=== PATIENT | female | born 1970 | race Caucasian/White ===

== ENCOUNTER 2019-05-08 12:03 | Emergency (ER) | payer BC ==
[2019-05-08 12:24] VITALS: BP 161/98
--- NOTE | 2019-05-08 12:41 | ED ---
Influenza-Like Illness - HPI Summary HPI Summary: Pt is 48yo otherwise healthy female presenting to the ED with concern over a fever of 100.4 yesterday. She denies any cough or congestion. She denies any rhinorrhea. She does endorse a slight sore throat, she rates this a 1/10. Denies any odynophagia or dysphagia. No ear pain, eye pain, neck pain. She does endorse some pain to her bilateral shoulders, again rating this a 1/10. Continues to eat and drink okay. Denies any known sick contacts. She did receive the flu vaccine this year and also contracted the flu a few months ago, influenza A. She is a nonsmoker. She does drink alcohol. No illicit drug use. Current medications include levothyroxine. - History of Current Complaint Chief Complaint: EDFluSymptoms Time Seen by Provider: 05/08/19 12:07 Hx Obtained From: Patient Onset/Duration: Sudden Onset Severity: Mild Associated Signs & Symptoms: T Max - 100.4 - Risk Factors Influenza Risk Factors: Negative - Allergy/Home Medications Home Medications: Home Medications Levothyroxine TAB* [Synthroid TAB*] 175 mcg PO DAILY 05/08/19 [History Confirmed 05/08/19] PMH/Surg Hx/FS Hx/Imm Hx Previously Healthy: Yes - Cancer History Hx Chemotherapy: No Hx Radiation Therapy: No - Immunization History Hx Pertussis Vaccination: No Immunizations Up to Date: Yes Infectious Disease History: No Infectious Disease History: Denies: Traveled Outside the [place] in Last 30 Days - Social History Occupation: Employed Full-time Lives: With Family Alcohol Use: Weekly Hx Substance Use: No Substance Use Type: Reports: None Hx Tobacco Use: Yes Smoking Status (MU): Light Every Day Tobacco Smoker Review of Systems Negative: Fever, Chills, Fatigue, Skin Diaphoresis Negative: Shortness Of Breath, Cough Genitourinary: Negative Positive: no symptoms reported, see HPI Negative: Arthralgia, Myalgia Skin: Negative Neurological/Mental Status: Negative All Other Systems Reviewed And Are Negative: Yes Physical Exam Triage Information Reviewed: Yes Vital Signs On Initial Exam: Initial Vitals Temp Pulse Resp BP Pulse Ox 98.7 F 102 18 161/98 97 05/08/19 12:16 05/08/19 12:16 05/08/19 12:16 05/08/19 12:16 05/08/19 12:16 Vital Signs Reviewed: Yes Appearance: Positive: Well-Appearing, Well-Nourished Skin: Positive: Warm, Skin Color Reflects Adequate Perfusion Head/Face: Positive: Normal Head/Face Inspection Eyes: Positive: EOMI, [place], Conjunctiva Clear Neck: Positive: Supple, No Lymphadenopathy Respiratory/Lung Sounds: Positive: Clear to Auscultation Cardiovascular: Positive: RRR, Pulses are Symmetrical in both Upper and Lower Extremities Musculoskeletal: Positive: Normal, Strength/ROM Intact Psychiatric: Positive: Anxious - tearful about family dynamics AVPU Assessment: Alert Procedures - Sedation Patient Received Moderate/Deep Sedation with Procedure: No Diagnostics - Vital Signs Vital Signs Temp Pulse Resp BP Pulse Ox 05/08/19 12:16 98.7 F 102 18 161/98 97 - Laboratory Lab Statement: Any lab studies that have been ordered have been reviewed, and results considered in the medical decision making process. Flu Symptom Course/Dx - Course Course Of Treatment: Pt is evlauated for flu like symptoms. Vital signs stable. Afebrile. Lungs CTA, RRR. No pharyngeal erythema, no cervical LAD. No abd pain throughout. Pt states she feels well. She is OK for DC at this time. It was discussed with the patient to return to the ED. - Diagnoses Differential Diagnosis/HQI/PQRI: Positive: Upper Respiratory Infection, Other - viral illness, influenza, sore throat Provider Diagnoses: Fever Discharge ED - Sign-Out/Discharge Documenting (check all that apply): Patient Departure - Discharge Plan Condition: Stable Disposition: HOME Referrals: Conner Hilton MD [Primary Care Provider] - Additional Instructions: As discussed, please follow up with PCP or return if you have any changes or worsening symptoms At this time, as you are afebrile without cough or congestion - we will avoid any testing - however if you get worse, this may change as discussed. - Billing Disposition and Condition Condition: STABLE Disposition: Home
== END 2019-05-08 12:42 | disposition home or self-care (01) ==
LOC: ED 12:03
DX: R50.9 Fever, unspecified (principal); E03.9 Hypothyroidism, unspecified; F17.200 Nicotine dependence, unspecified, uncomplicated; Z79.890 Hormone replacement therapy
CPT/HCPCS: 99282